=== PATIENT | male | born 1995 | race Caucasian/White ===

== ENCOUNTER 2019-07-01 03:50 | Emergency (ER) | payer SELFPAY ==
--- NOTE | 2019-07-01 04:51 | REPVR ---
PROCEDURE INFORMATION: Exam: CT Head Without Contrast Exam date and time: 07/01/2019 4:32 AM Age: 24 years old Clinical indication: Injury or trauma; Fall; Initial encounter; Blunt trauma (contusions or hematomas); Consciousness not specified TECHNIQUE: Imaging protocol: Computed tomography of the head without contrast. Radiation optimization: All CT scans at this facility use at least one of these dose optimization techniques: automated exposure control; mA and/or kV adjustment per patient size (includes targeted exams where dose is matched to clinical indication); or iterative reconstruction. COMPARISON: No relevant prior studies available. FINDINGS: Brain: Normal. No hemorrhage. Unremarkable white matter. No mass effect. Ventricles: Normal. No ventriculomegaly. Bones/joints: Unremarkable. No acute fracture. Sinuses: Visualized sinuses are unremarkable. No fluid levels. Mastoid air cells: Visualized mastoid air cells are well aerated. Soft tissues: Unremarkable. IMPRESSION: No acute intracranial abnormality. Electronically signed by: Duran Martin On 07/01/2019 04:51:04 AM
[2019-07-01 05:22] VITALS: BP 119/70
== END 2019-07-01 05:24 | disposition home or self-care (01) ==
LOC: M ED 03:50
DX: F10.129 Alcohol abuse with intoxication, unspecified (principal)

== ENCOUNTER 2020-09-03 19:21 | Emergency (ER) | payer OTHER ==
[~2020-09-03] VITALS: Ht 177.8 cm; Wt 87.0 kg
[2020-09-03] MEDS ORDERED: IBUP80TA PO (19:35)
[2020-09-03 21:49] LABS: HEMATOCRIT 45.5 % (42.0-52.0); HEMOGLOBIN 14.9 g/dl (13.5-17.5); MEAN CORPUSCULAR HEMOGLOBIN 27.8 pg (27.0-33.0); MEAN CORPUSCULAR HGB CONC 32.7 g/dl (32.0-36.5); MEAN CORPUSCULAR VOLUME 84.9 fl (80.0-96.0); PLATELET COUNT, AUTOMATED 268 10^3/uL (150-450); RED BLOOD COUNT 5.36 10^6/uL (4.30-6.10); WHITE BLOOD COUNT 15.1 10^3/uL (4.0-10.0)
--- NOTE | 2020-09-03 22:43 | REPVR ---
PROCEDURE INFORMATION: Exam: XR Chest Exam date and time: 09/03/20 (9:44pm) Age: 25 years old Clinical indication: SOB TECHNIQUE: Imaging protocol: Portable CXR Views: 1 view COMPARISON: No relevant prior studies available FINDINGS: Lungs: Unremarkable. No consolidation. Pleural spaces: Unremarkable. No pleural effusions. No pneumothorax. Heart/Mediastinum: Unremarkable. No cardiomegaly. Bones/joints: Unremarkable. IMPRESSION: No acute findings. Electronically signed by: Flora Szymanski On 09/03/2020 22:43:03 PM
[2020-09-03 22:46] LABS: BLOOD UREA NITROGEN 16 MG/DL (7-18); CALCIUM LEVEL 9.8 MG/DL (8.5-10.1); CARBON DIOXIDE LEVEL 20 MEQ/L (21-32); CHLORIDE LEVEL 104 MEQ/L (98-107); CK-MB VALUE MASS 7.8 NG/ML (<3.6); CPK CREATINE PHOSPHOKINASE 3542 U/L (39-308); CREATININE FOR GFR 1.09 MG/DL (0.70-1.30); GLOMERULAR FILTRATION RATE > 60.0 (>60); GLUCOSE, FASTING 65 MG/DL (70-100); MB/CK RELATIVE INDEX 0.22 (< OR =4); POTASSIUM SERUM 4.8 MEQ/L (3.5-5.1); SODIUM LEVEL 139 MEQ/L (136-145); TROPONIN I < 0.02 NG/ML (< 0.10)
[2020-09-03] MEDS ORDERED: NS 1,000 ML IV ONE (22:55)
[2020-09-04 00:58] VITALS: BP 132/71
--- NOTE | 2020-09-04 07:51 | ECGEPIP ---
[facility] - ED Test Date: 2020-09-03 Pat Name: SOFIA SAAB Department: Room: - Gender: Male [employer]: ED : 1995 Requested By: LILY Huang PA-C Order Number: [id number] Reading MD: Rusty Castañeda Measurements Intervals Kimberly Rate: 72 P: 39 [place]: 162 QRS: 82 QRSD: 82 T: 54 QT: 382 QTc: 418 Interpretive Statements Normal sinus rhythm with sinus arrhythmia NO PRIORS FOR COMPARISON Electronically Signed on 09-04-2020 7:51:21 EDT by Rusty Castañeda
== END 2020-09-04 01:04 | disposition home or self-care (01) ==
LOC: M ED 19:21
DX: Z11.52 Encounter for screening for COVID-19 (principal); R06.02 Shortness of breath; F17.210 Nicotine dependence, cigarettes, uncomplicated

== ENCOUNTER → 2020-11-25 | Outpatient (CLI) | payer OTHER ==
[~2020-11-25] MED LIST: IBUP80TA PO
--- NOTE | 2020-11-25 08:27 | REP ---
INDICATION: DYSNEA ON EXERTION COMPARISON: None TECHNIQUE: Axial noncontrast images from the thoracic inlet to the upper abdomen with coronal and sagittal reformations. This CT examination was performed using the following dose reduction techniques: Automated exposure control, adjustment of mA and/or kv according to the patient's size, and use of iterative reconstruction technique. FINDINGS: Bilateral lung mendoza are well aerated, relatively symmetric and clear. No consolidation, significant nodule or mass. No effusion. No pneumothorax. Tracheobronchial tree is patent. No obvious adenopathy. Mediastinum is unremarkable. Relatively normal thoracic aorta, pulmonary vasculature, and heart/pericardium. Visualized thyroid gland is normal. Musculoskeletal structures are intact and normal. IMPRESSION: Normal noncontrast chest CT. No acute mediastinal or pleuroparenchymal process. <Electronically signed by Bassem Araiza > 11/25/20 [id number]
== END ==
LOC: M RAD 08:00
PROVIDERS: ATTEND Family Medicine
DX: R06.00 Dyspnea, unspecified (principal)

== ENCOUNTER 2022-06-26 15:36 | Emergency (ER) | payer OTHER ==
[~2022-06-26] VITALS: Ht 177.8 cm; Wt 89.9 kg
[2022-06-26 18:32] LABS: BASO # 0.1 10^3/uL (0.0-0.2); BASO % 0.4 % (0.0-1.0); EOS % 0.1 % (0.0-3.0); HEMATOCRIT 47.9 % (42.0-52.0); HEMOGLOBIN 15.2 g/dl (13.5-17.5); LYMPH # 2.5 10^3/uL (1.5-5.0); LYMPH % 22.3 % (24.0-44.0); MEAN CORPUSCULAR HEMOGLOBIN 26.3 pg (27.0-33.0); MEAN CORPUSCULAR HGB CONC 31.7 g/dl (32.0-36.5); MONO # 0.8 10^3/uL (0.0-0.8); MONO % 6.6 % (2.0-8.0); NEUTROPHILS # 7.9 10^3/uL (1.5-8.5); NEUTROPHILS % 70.1 % (36.0-66.0); PLATELET COUNT, AUTOMATED 228 10^3/uL (150-450); RED BLOOD COUNT 5.77 10^6/uL (4.30-6.10); WHITE BLOOD COUNT 11.3 10^3/uL (4.0-10.0)
[2022-06-26 18:54] LABS: INR 0.96; PARTIAL THROMBOPLASTIN TIME 25.8 SECONDS (24.8-34.2)
[2022-06-26 18:56] LABS: LIPASE 28 U/L (12-53)
[2022-06-26 18:57] LABS: BILIRUBIN,DIRECT 0.2 MG/DL (<0.4)
[2022-06-26 18:58] LABS: ALBUMIN 4.3 G/DL (3.2-5.2); ALKALINE PHOSPHATASE 63 U/L (46-116); ALT/SGPT 32 U/L (7.0-40); AST/SGOT 22 U/L (<34); BILIRUBIN,TOTAL 0.9 MG/DL (0.3-1.2); BLOOD UREA NITROGEN 10 MG/DL (9-23); CARBON DIOXIDE LEVEL 30 MMOL/L (20-31); CHLORIDE LEVEL 104 MMOL/L (98-107); CREATININE FOR GFR 0.88 MG/DL (0.70-1.30); GLOMERULAR FILTRATION RATE > 60.0 (>60); GLUCOSE, FASTING 81 MG/DL (60-100); POTASSIUM SERUM 4.3 MMOL/L (3.5-5.1); SODIUM LEVEL 142 MMOL/L (136-145); TOTAL PROTEIN 7.2 G/DL (5.7-8.2)
[2022-06-26] MEDS ORDERED: OMEP40CA4 PO ×2 (20:10→21:26)
[2022-06-26] MEDS ORDERED: CARA1TAB6 PO ×2 (20:10→21:26)
[2022-06-26] MEDS: GI COCKTAIL 50ML BTL(HYOSCYAMINE/MAALOX/LIDOCAINE VISCOUS)(1:3:1) PO ONE (20:21)
[2022-06-26] MEDS: OMEPRAZOLE 20MG CAP PO ONE (20:21)
[2022-06-26 20:22] VITALS: BP 117/61
[2022-06-26] MEDS: SUCRALFATE 1 GM TAB PO ONE (20:22)
== END 2022-06-26 20:23 | disposition home or self-care (01) ==
LOC: M ED 15:36
DX: K92.0 Hematemesis (principal)